=== PATIENT | female | born 1960 | race Caucasian/White ===

== ENCOUNTER → 2023-04-28 14:03 | Outpatient (REF) | payer OTHER, SELFPAY | LOC: WDC 14:03 | PROVIDERS: ATTENDING PHYSICIAN Family Medicine | DX: Z12.31 Encounter for screening mammogram for malignant neoplasm of breast (principal) | CPT/HCPCS: 77063; 77067 ==

== ENCOUNTER 2023-06-02 15:37 | Emergency (ER) | payer OTHER, SELFPAY ==
[2023-06-02 15:40] VITALS: BP 113/73
--- NOTE | 2023-06-02 16:49 | ED.GENMED ---
History of Present Illness
General
Chief Complaint: Musculo-Skeletal Complaint
Time Seen by Provider: 06/02/23 16:49
Travel History
Have you had any contact with someone who has COVID-19?: No
Do you have any symptoms of coronavirus? Fever > 100 degrees, chills, cough, shortness of breath, sore throat, loss of taste or smell, muscle aches, or headache?: No
History of Present Illness
History of Present Illness:
HPI: Patient came in by ambulance due to concerns related to neck pain and left upper extremity weakness/sensory changes. She had a cervical epidural through pain and spine management about 2 weeks ago and had follow-up yesterday and they wanted
her to have an MRI. Her symptoms worsened so she came in here by ambulance. She denies any other symptoms.
EXAM:
GENERAL: Well appearing in no distress
CERVICAL: There is some decreased active range of motion of the cervical spine due to pain
HEENT: Moist oral mucosa
CARDIOVASCULAR: No murmurs, normal heart rate, regular rhythm, No chest wall tenderness
PULMONARY: No respiratory distress, breath sounds are clear and equal
ABDOMEN: Soft with no peritoneal signs, no tenderness
NEUROLOGIC: Excellent strength all extremities, however in the left upper extremity there may be some very minimal decrease strength in ulnar, median, and radial nerve distributions, there is some slight decreased sensation in the left compared to
right upper extremity
PSYCHIATRIC: Appropriate mental status, normal insight and judgement
EXTREMITIES: Nontender, no edema
SKIN: No rash, no lesions
TIME OF INITIAL ENCOUNTER: 5 PM
NUMBER AND COMPLEXITY OF PROBLEMS ADDRESSED AT THE ENCOUNTER
� Chronic conditions affecting care: Cervical radiculopathy, migraine, frequent headaches, asthma, COPD, high blood pressure, hyperlipidemia, hypothyroidism, anemia, lupus, Sjogren's, anxiety/depression, schizoaffective disorder,
fibromyalgia/chronic pain
� Acute Exacerbation and/or Progression of Chronic Illness: This is a subacute and worsening problem
� Differential Diagnosis includes: Cervical radiculopathy
AMOUNT AND/OR COMPLEXITY OF DATA TO BE REVIEWED AND ANALYZED
� I performed an independent evaluation of and my interpretation is:
EKG:
CT:
X-rays:
Laboratory Studies:
Other:
� Review of other/old records: I reviewed physical therapy notes from 06/15/2022 related to his cervical radiculopathy and at that time her progress seems to have plateaued from a physical therapy standpoint. I reviewed the MRI
of the cervical spine from 11/29/2021 which showed multilevel DDD worst at C4-5 including severe neuroforaminal stenosis at that level
� Clinical information was obtained by an independent historian: I spoke to daughter and other family at bedside
� Prescriptions/Medications Considered but not given:
� Further testing considered but not performed:
RISK OF COMPLICATIONS AND/OR MORBIDITY OR MORTALITY OF PATIENT MANAGEMENT
� Social determinants of health affecting care: Lives at home
� Discussion with other providers: I discussed with Dr. Brown and arrange for outpatient MRI in the next 48 hours
� Escalation of care including admission/observation vs risk of discharge considered: Although the patient does have some mild deficits in the left upper extremity these do not overwhelmingly seem debilitating. She is already on
low-dose steroid medication. Will give short course of narcotic analgesia.
Past History
Past History
ED Past Medical History: Arrthythmia (Palpitations), Asthma, COPD, Fibromyalgia, GERD (Gastritis), HTN, Hypercholesterolemia, Seizures, Valvular disease (Mitral valve prolapse), Hypothyroidism, Psychiatric (Schizoaffective disorder, chronic pain
disorder, depression), Other (Lupus) and Other (Pulmonary embolism, Bronchitis, UTi)
ED Past Surgical History: Cholecystectomy, Gynecological (Bilateral breast cyst removal), Orthopedic (Right knee ACL repair) and Other (Gastric ulcer surgical repair, bilateral mastoidectomy)
Social History
Tobacco: Smoker
Alcohol: None
Drug: None
Personal:
Living: with roommate
Employment: Not employed
Family History
Family History: Other (Noncontributory)
Phy Exam
Physical Exam
Physical Exam:
See HPI
Course
Orders/Labs/Results
Orders:
Orders
06/02/23 17:11
Oxycodone/Acetaminophen [Percocet 5/325] 1 tablet PO NOW STA
06/02/23 17:34
Sling Left-Treatment ONCE
Vital Signs
Initial and Last Documented VS:
Initial Vital Signs
Temp Pulse Resp BP Pulse Ox
99.1 F 99 16 113/73 95
06/02/23 15:40 06/02/23 15:40 06/02/23 15:40 06/02/23 15:40 06/02/23 15:40
Last Documented Vital Signs
Temp Pulse Resp BP Pulse Ox
99.1 F 99 16 113/73 95
06/02/23 15:40 06/02/23 15:40 06/02/23 15:40 06/02/23 15:40 06/02/23 15:40
*Critical Care Note
Total Time (30-74mins, 75-104mins- exclusive of procedures): Not Applicable
ED Attending Note
-
Portions of this chart may have been created with voice recognition software.� Occasional wrong word or��sound alike� substitutions may have occurred due to the inherent limitations of voice recognition software.
Discharge Plan
Departure
Patient Disposition: Home (Routine Discharge)
Date of Disposition: 06/02/23
Time of Disposition: 17:42
Patient with high blood pressure during this ER visit?: Yes
Discharge Problem:
Cervical radiculopathy
Prescriptions:
New
oxycodone-acetaminophen [Percocet] 5-325 mg tablet
1 tab PO Q6HPRN PRN (Reason: pain) Qty: 14 0RF
No Action
Aspirin Tab
81 mg PO DAILY
Synthroid Tab
125 mcg PO DAILY
Flonase [place]
2 inh SPRAY DAILY
Patient Comments:
50 mcg
risperidone 2 MG tablet
4 mg PO HS
folic acid 1 MG tablet
1 mg PO DAILY
risperidone 1 MG tablet
1 mg PO BID
buspirone [BuSpar] 30 MG tablet
15 mg PO BID
atorvastatin 10 MG tablet
20 mg PO QPM
montelukast 10 MG tablet
10 mg PO HS
budesonide-formoterol [Symbicort] 1 PUFF HFA aerosol inhaler
2 puff inhalation BID
famotidine 20 MG tablet
20 mg PO BID
omeprazole 40 MG capsule,delayed release(DR/EC)
40 mg PO DAILY
mirtazapine 15 MG tablet
30 mg PO HS
lubiprostone 24 MCG capsule
24 mcg PO BID
lamotrigine [Lamictal XR] 200 MG tablet extended release 24hr
300 mg PO DAILY
B12
1,000 mg PO DAILY
cyclobenzaprine 10 mg Tablet
10 mg PO BID
Rx Instructions:
AFTERNOON AND BEDTIME
cetirizine [Zyrtec] 10 mg Tablet
10 mg PO DAILY
leflunomide 10 mg Tablet
20 mg PO DAILY@1600
diphenhydramine HCl [Benadryl] 25 mg Capsule
25 mg PO HS
hydroxychloroquine 200 mg Tablet
200 mg PO BID
risperidone 1 mg Tablet
1 mg PO PRN PRN (Reason: AGITATION )
mirabegron 50 mg Tablet Extended Release 24 Hr
50 mg PO DAILY
umeclidinium 62.5 mcg/actuation Blister With Device
1 inh INHALATION DAILY
metoprolol succinate 50 mg Capsule,Sprinkle,Er 24hr
75 mg PO BID
warfarin 4 mg Tablet
4 mg PO DAILY
albuterol sulfate 90 mcg/actuation Hfa Aerosol Inhaler
2 puff INHALATION QID PRN (Reason: sob)
prednisone 5 mg Tablet
5 mg PO DAILY Qty: 1 0RF
clonazepam 0.5 mg tablet
1 mg PO BID
gabapentin 600 mg Tablet
1,200 mg PO TID
calcium carbonate-vitamin D3 [Cres[place]encio-600 With Vitamin D] 600 mg-5 mcg (200 unit) Tablet
1 tab PO DAILY
baclofen 10 mg Tablet
10 mg PO HS
Multivitamin 50 Plus Tablet
1 tab PO DAILY
coenzyme Q10 [CoQ-10] 100 mg Capsule
200 mg PO HS
lurasidone [Latuda] 40 mg Tablet
40 mg PO DAILY@1600
Rx Instructions:
must administer with food (at least 350 calories)
lutein 40 mg Capsule
40 mg PO DAILY
oxycodone-acetaminophen [Percocet] 5-325 mg Tablet
1 tab PO Q6HPRN Qty: 12 0RF
albuterol sulfate 2.5 mg /3 mL (0.083 %) solution for nebulization
2.5 mg inhalation QID PRN (Reason: shortness of breath or wheezing) Qty: 180 0RF
Referrals:
Debbie Goodman MD [Family Provider] -
Activity Restrictions/Additional Instructions:
I spoke to our radiology department and we are planning MRI for Wednesday. Please follow-up for MRI. I sent a short course of narcotic analgesia to your pharmacy�I recommend taking MiraLAX or something else to help prevent constipation if you do take
the Percocet. Limit the use of this as there is high addiction potential. Return here if worse
Discharge Date and Time
Print Language: OCCITAN
[2023-06-02] MEDS: PERCOCET 5/325 1 TABLET PO (17:49)
== END 2023-06-02 18:32 | disposition home or self-care (01) ==
LOC: EMR 15:37
PROVIDERS: EMERGENCY PHYSICIAN Emergency Medicine; FAMILY PHYSICIAN Family Medicine
DX: M54.12 Radiculopathy, cervical region (principal); F17.200 Nicotine dependence, unspecified, uncomplicated; I10 Essential (primary) hypertension
CPT/HCPCS: 99283

== ENCOUNTER → 2023-06-04 09:19 | Outpatient (REF) | payer OTHER, SELFPAY | LOC: MRI 3T 09:19 | PROVIDERS: ATTENDING PHYSICIAN Nurse Practitioner; FAMILY PHYSICIAN Family Medicine | DX: M54.12 Radiculopathy, cervical region (principal) | CPT/HCPCS: 72141 ==

== ENCOUNTER → 2023-07-20 11:04 | Outpatient (REF) | payer OTHER, SELFPAY | LOC: RAD 11:04 | PROVIDERS: ATTENDING PHYSICIAN Nurse Practitioner Adult Health; FAMILY PHYSICIAN Family Medicine | DX: F17.210 Nicotine dependence, cigarettes, uncomplicated (principal) | CPT/HCPCS: 71271 ==

== ENCOUNTER 2023-08-19 14:34 | Outpatient (RCR) | payer OTHER, SELFPAY | END 2023-08-19 23:59 | disposition home or self-care (01) | LOC: RST 14:34 | PROVIDERS: ATTENDING PHYSICIAN Psychiatry & Neurology Neurology; FAMILY PHYSICIAN Family Medicine | DX: R41.3 Other amnesia (principal); R41.841 Cognitive communication deficit | CPT/HCPCS: 96125; 97129; 97130 ==

== ENCOUNTER 2023-09-20 11:41 | Outpatient (RCR) | payer OTHER, SELFPAY | END 2023-09-20 23:59 | disposition home or self-care (01) | LOC: ROT 11:41 | PROVIDERS: ATTENDING PHYSICIAN Psychiatry & Neurology Neurology; FAMILY PHYSICIAN Family Medicine | DX: R41.3 Other amnesia (principal); R41.841 Cognitive communication deficit | CPT/HCPCS: 97129; 97130 ==

== ENCOUNTER 2023-10-11 13:55 | Outpatient (RCR) | payer OTHER, SELFPAY | END 2023-10-11 23:59 | disposition home or self-care (01) | LOC: ROT 13:55 | PROVIDERS: ATTENDING PHYSICIAN Psychiatry & Neurology Neurology; FAMILY PHYSICIAN Family Medicine | DX: R41.3 Other amnesia (principal); R41.841 Cognitive communication deficit | CPT/HCPCS: 97129; 97130 ==

== ENCOUNTER 2023-11-17 13:56 | Outpatient (RCR) | payer OTHER, SELFPAY | END 2023-11-17 23:59 | disposition home or self-care (01) | LOC: RPT 13:56 | PROVIDERS: ATTENDING PHYSICIAN Psychiatry & Neurology Neurology; FAMILY PHYSICIAN Family Medicine | DX: R41.3 Other amnesia (principal); M47.12 Other spondylosis with myelopathy, cervical region (principal); R41.841 Cognitive communication deficit; M54.2 Cervicalgia; Z73.6 Limitation of activities due to disability | CPT/HCPCS: 97110; 97112; 97129; 97130; 97140; 97162; 97167; 97530; 97535 ==

== ENCOUNTER → 2023-12-02 13:30 | Outpatient (REF) | payer OTHER, SELFPAY | LOC: HWRAD 13:30 | PROVIDERS: ATTENDING PHYSICIAN Family Medicine | DX: R93.89 Abnormal findings on diagnostic imaging of other specified body structures (principal); R91.8 Other nonspecific abnormal finding of lung field | CPT/HCPCS: 71250 ==

== ENCOUNTER → 2023-12-07 11:13 | Outpatient (REF) | payer OTHER, SELFPAY | LOC: RAD 11:13 | PROVIDERS: ATTENDING PHYSICIAN Family Medicine | DX: M85.88 Other specified disorders of bone density and structure, other site (principal); Z78.0 Asymptomatic menopausal state | CPT/HCPCS: 77080 ==

== ENCOUNTER 2023-12-15 14:05 | Outpatient (RCR) | payer OTHER, SELFPAY | END 2023-12-15 23:59 | disposition home or self-care (01) | LOC: ROT 14:05 | PROVIDERS: ATTENDING PHYSICIAN Psychiatry & Neurology Neurology; FAMILY PHYSICIAN Family Medicine | DX: R41.3 Other amnesia (principal); M47.12 Other spondylosis with myelopathy, cervical region (principal); R41.841 Cognitive communication deficit; M54.2 Cervicalgia; Z73.6 Limitation of activities due to disability | CPT/HCPCS: 97010; 97110; 97112; 97140; 97530; 97535 ==

== ENCOUNTER 2024-01-10 14:23 | Outpatient (RCR) | payer OTHER, SELFPAY | END 2024-01-11 09:06 | disposition home or self-care (01) | LOC: ROT 14:23 | PROVIDERS: Psychiatry & Neurology Neurology; FAMILY PHYSICIAN Family Medicine | DX: M47.12 Other spondylosis with myelopathy, cervical region (principal); R41.3 Other amnesia (principal); R41.841 Cognitive communication deficit; M54.2 Cervicalgia; Z73.6 Limitation of activities due to disability | CPT/HCPCS: 97110; 97112; 97129; 97130; 97140; 97530 ==

== ENCOUNTER → 2024-02-01 09:32 | Outpatient (REF) | payer OTHER, SELFPAY | LOC: DHSLP 09:32 | PROVIDERS: ATTENDING PHYSICIAN Internal Medicine Critical Care Medicine; FAMILY PHYSICIAN Family Medicine | DX: G47.19 Other hypersomnia (principal); R06.83 Snoring | CPT/HCPCS: 95810 ==

== ENCOUNTER → 2024-06-13 12:37 | Outpatient (REF) | payer OTHER, SELFPAY | LOC: WDC 12:37 | PROVIDERS: ATTENDING PHYSICIAN Family Medicine | DX: Z12.31 Encounter for screening mammogram for malignant neoplasm of breast (principal) | CPT/HCPCS: 77063; 77067 ==

== ENCOUNTER → 2024-10-13 14:26 | Outpatient (REF) | payer OTHER, SELFPAY | LOC: RAD 14:26 | PROVIDERS: ATTENDING PHYSICIAN Internal Medicine Rheumatology; FAMILY PHYSICIAN Family Medicine | DX: R76.12 Nonspecific reaction to cell mediated immunity measurement of gamma interferon antigen response without active tuberculosis (principal) | CPT/HCPCS: 71046 ==

== ENCOUNTER → 2024-10-17 11:09 | Outpatient (REF) | payer OTHER, SELFPAY | LOC: HWRCS 11:09 | PROVIDERS: ATTENDING PHYSICIAN Internal Medicine Cardiovascular Disease; FAMILY PHYSICIAN Family Medicine | DX: R07.89 Other chest pain (principal) | CPT/HCPCS: 78452; 93017; A9500; J2785 ==

== ENCOUNTER → 2024-12-14 12:59 | Outpatient (REF) | payer OTHER, SELFPAY | LOC: HWRAD 12:59 | PROVIDERS: ATTENDING PHYSICIAN Internal Medicine Critical Care Medicine; FAMILY PHYSICIAN Family Medicine | DX: F17.210 Nicotine dependence, cigarettes, uncomplicated (principal) | CPT/HCPCS: 71271 ==